=== PATIENT | male | born 1970 | race Caucasian/White ===

== ENCOUNTER 2018-02-25 17:51 | Inpatient (IN) | payer BC ==
[2018-02-25] VITALS (8 sets, daily range): BP systolic 96–161; BP diastolic 45–80
[~2018-02-25] VITALS: Ht 185.4 cm; Wt 117.5 kg
--- NOTE | ~2018-02-25 | O ---
[place], [place] OPERATIVE NOTE NAME: [id number] UNIT #: [id number] ROOM: [id number] DOCTOR: KATIA WILEY MD BIRTHDATE: [birth year] DOS: 02/26/2018 PREOPERATIVE DIAGNOSIS: Acute cholecystitis. POSTOPERATIVE DIAGNOSIS: Acute cholecystitis. PROCEDURE: Laparoscopic cholecystectomy. SURGEON: Katia Wiley MD CUT AND COVER LINE WORKER: [id number]. ANESTHESIA: General with endotracheal intubation. INDICATION: This is a 47-year-old gentleman who presented with abdominal pain and was found to have acute cholecystitis. It was decided to take the patient to the operating room for the above-mentioned procedure. The procedure and its complications were explained to the patient in detail preoperatively. Complications that were discussed included but were not limited to bleeding, infection, hematoma/seroma/abscess formation, biloma formation, incisional hernia formation, damage to lying vital structures, inadvertent injury to common bile duct and prolonged postoperative pain. He agreed to proceed. DESCRIPTION OF PROCEDURE: After identifying the patient, the patient was brought to the operating suite and laid in the supine position. After induction of general anesthesia, the parts were painted and draped in the usual sterile fashion and a time-out procedure was called. Access near the umbilicus was obtained with the help of a transverse incision on the skin. The skin and the subcutaneous tissue were incised. The fascia was incised vertically and a 10 mm Isabella port was introduced and pneumoperitoneum was created. Under direct vision, epigastric incision of 10 mm and two 5 mm incisions were made in the right upper quadrant and appropriate size ports were introduced. The gallbladder was found to be acutely inflamed and had lot of adhesions around it, which were taken down with the help of blunt and sharp dissection. The gallbladder was retracted superiorly and laterally. The cystic duct and the cystic artery were carefully dissected until the critical view of safety was obtained and the triangle of Calot was identified. Each of the structures were then clipped 3 times and cut between the first and the second clip. The gallbladder was then removed from the bed of the gallbladder with the help of electrocautery. It was placed in an EndoCatch bag and removed from the peritoneal cavity. Hemostasis was achieved in the liver bed. After that was confirmed, the right upper quadrant and epigastric ports were removed and there was no bleeding seen. The umbilical port was also removed and the fascial defect was approximated with the help of 0 Vicryl. The skin edges were infiltrated with local anesthesia and approximated with the help of 4-0 Vicryl in a subcuticular running fashion. Dressings were placed. The patient tolerated the procedure well and was taken to recovery in stable fashion. There were no complications. Dr. Katia Wiley, the attending surgeon, was present throughout the operating case. [place], [place] OPERATIVE NOTE NAME: LANG SORENSEN JR UNIT #: [id number] ROOM: [facility] DOCTOR: KATIA WILEY MD BIRTHDATE: [birth year] Katia Wiley MD CM:OPRECORD:OPERATIVE NOTE [id number] KATIA WILEY MD 02/26/18 1435 interface
[2018-02-25] MEDS ORDERED: JANUVIA100 MG PO (18:05)
[2018-02-25] MEDS ORDERED: ATORVASTATIN CA20 M1 PO (18:05)
[2018-02-25] MEDS ORDERED: METFORMIN HCL500 MG PO (18:05)
[2018-02-25] MEDS ORDERED: METOPROLOL SUCC25 M2 PO (18:05)
[2018-02-25 18:07] LABS: BASO % 0.4 % (0.0-1.0); EOS # 0.3 10*3/uL (0.0-0.4); EOS % 3.1 % (1.0-4.0); HEMATOCRIT 46.3 % (42.0-52.0); HEMOGLOBIN 16.1 g/dl (14.0-18.0); LYMPH # 3.6 10*3/uL (1.3-4.4); MEAN CELL VOLUME 89.6 fl (80.0-94.0); MEAN CORPUSCULAR HGB 31.1 pg (27.0-31.0); MEAN CORPUSCULAR HGB CONC 34.8 g/dl (33.0-37.0); MEAN PLATELET VOLUME 9.1 fl (9.6-12.3); MONO # 0.6 10*3/uL (0.1-1.0); MONO % 5.3 % (3.0-9.0); NEUT % 56.8 % (47.0-73.0); PLATELET COUNT AUTOMATED 215 10*3/uL (130-400); RED BLOOD COUNT 5.17 10*6/uL (4.50-5.90); RED CELL DISTRI WIDTH 12.9 % (0-14.5); WHITE BLOOD COUNT 10.5 10*3/uL (4.8-10.8)
[2018-02-25 18:17] LABS: ACT PARTIAL THROMBO TIME 22.7 SECONDS (20.8-31.5); INTERNATIONAL NORM RATIO 0.9 (2.0-3.5)
[2018-02-25 18:26] LABS: ALBUMIN 3.9 gm/dl (3.1-4.5); ALKALINE PHOSPHATASE 87 U/L (45-117); BUN 19 mg/dl (7-24); CHLORIDE 104 mmol/L (98-107); CREATININE 1.12 mg/dL (0.70-1.30); POTASSIUM 4.1 mmol/L (3.5-5.1); SGOT/AST 27 IU/L (3-35); SGPT/ALT 47 U/L (12-78); SODIUM 138 mmol/L (136-145); TOTAL PROTEIN 7.7 gm/dL (6.4-8.2)
[2018-02-25 18:30] LABS: TROPONIN I < 0.015 ng/ml (<0.045)
[2018-02-25] MEDS ORDERED: CHANTIX1 M1 PO (22:07)
[2018-02-26] VITALS (9 sets, daily range): BP systolic 118–141; BP diastolic 65–82
[2018-02-26 06:20] LABS: BASO % 0.4 % (0.0-1.0); EOS # 0.3 10*3/uL (0.0-0.4); EOS % 3.4 % (1.0-4.0); HEMATOCRIT 47.7 % (42.0-52.0); HEMOGLOBIN 16.6 g/dl (14.0-18.0); LYMPH # 3.5 10*3/uL (1.3-4.4); LYMPH % 34.6 % (27.0-41.0); MEAN CELL VOLUME 89.8 fl (80.0-94.0); MEAN CORPUSCULAR HGB 31.3 pg (27.0-31.0); MEAN CORPUSCULAR HGB CONC 34.8 g/dl (33.0-37.0); MEAN PLATELET VOLUME 9.2 fl (9.6-12.3); MONO # 0.5 10*3/uL (0.1-1.0); MONO % 4.9 % (3.0-9.0); NEUT # 5.6 10*3/uL (2.3-7.9); NEUT % 56.4 % (47.0-73.0); PLATELET COUNT AUTOMATED 221 10*3/uL (130-400); RED BLOOD COUNT 5.31 10*6/uL (4.50-5.90); RED CELL DISTRI WIDTH 12.9 % (0-14.5)
[2018-02-26 06:33] LABS: CHLORIDE 107 mmol/L (98-107); POTASSIUM 3.9 mmol/L (3.5-5.1); SODIUM 139 mmol/L (136-145)
[2018-02-26 06:43] LABS: ALBUMIN 3.8 gm/dl (3.1-4.5); ALKALINE PHOSPHATASE 92 U/L (45-117); BUN 14 mg/dl (7-24); CHOLESTEROL 172 mg/dL (<200); CREATININE 0.93 mg/dL (0.70-1.30); HDL CHOLESTEROL 27 mg/dl (40-60); LDL CHOLESTEROL 66 mg/dL (9-159); LIPASE 153 U/L (73-393); PHOSPHOROUS 3.5 mg/dL (2.5-4.9); SGOT/AST 27 IU/L (3-35); SGPT/ALT 45 U/L (12-78); TOTAL PROTEIN 7.4 gm/dL (6.4-8.2); TRIGLYCERIDES 396 mg/dl (<150); VLDL CHOLESTEROL 79 mg/dL (6-40)
[2018-02-26 06:48] LABS: ACT PARTIAL THROMBO TIME 22.5 SECONDS (20.8-31.5); INTERNATIONAL NORM RATIO 0.9 (2.0-3.5)
[2018-02-26 08:56] LABS: VITAMIN D, 25-HYDROXY 13.1 ng/mL (30-100)
[2018-02-26] MEDS ORDERED: VITAMIN D-32000 UNIT PO (14:56)
== END 2018-02-26 15:00 | disposition home or self-care (01) | DRG 419 ==
LOC: ED 17:51 → EDHOLD 20:58 → 4E 21:13
PROVIDERS: Emergency Medicine; Internal Medicine
PROC: 0FT44ZZ Resection of Gallbladder, Percutaneous Endoscopic Approach (ICD-10-PCS; principal; 2018-02-26)
DX: K80.00 Calculus of gallbladder with acute cholecystitis without obstruction (principal); E11.69 Type 2 diabetes mellitus with other specified complication; I95.2 Hypotension due to drugs; K76.0 Fatty (change of) liver, not elsewhere classified; E66.9 Obesity, unspecified; E78.5 Hyperlipidemia, unspecified; I10 Essential (primary) hypertension; I25.10 Atherosclerotic heart disease of native coronary artery without angina pectoris; F17.200 Nicotine dependence, unspecified, uncomplicated; R06.82 Tachypnea, not elsewhere classified; R00.1 Bradycardia, unspecified; Z79.84 Long term (current) use of oral hypoglycemic drugs; Z83.3 Family history of diabetes mellitus; Z95.1 Presence of aortocoronary bypass graft; Z82.49 Family history of ischemic heart disease and other diseases of the circulatory system; Z71.6 Tobacco abuse counseling; Z68.34 Body mass index [BMI] 34.0-34.9, adult

== ENCOUNTER 2020-07-27 08:26 | Emergency (ER) | payer OTHER ==
[~2020-07-27] VITALS: Ht 182.8 cm; Wt 108.9 kg
[~2020-07-27 08:26] MED LIST: ATORVASTATIN CA20 M1 PO; CHANTIX1 M1 PO; JANUVIA100 MG PO; METFORMIN HCL500 MG PO; METOPROLOL SUCC25 M2 PO; VITAMIN D-32000 UNIT PO
[2020-07-27 08:35] VITALS: BP 124/71
[2020-07-27 08:48] LABS: BASO % 0.4 % (0.0-1.0); EOS # 0.3 10*3/uL (0.0-0.4); EOS % 3.7 % (1.0-4.0); HEMATOCRIT 48.9 % (42.0-52.0); LYMPH % 28.5 % (27.0-41.0); MEAN CELL VOLUME 90.4 fl (80.0-94.0); MEAN CORPUSCULAR HGB 30.7 pg (27.0-31.0); MEAN CORPUSCULAR HGB CONC 33.9 g/dl (33.0-37.0); MEAN PLATELET VOLUME 8.9 fl (9.6-12.3); MONO # 0.4 10*3/uL (0.1-1.0); MONO % 5.6 % (3.0-9.0); NEUT # 4.3 10*3/uL (2.3-7.9); NEUT % 61.5 % (47.0-73.0); PLATELET COUNT AUTOMATED 233 10*3/uL (130-400); RED BLOOD COUNT 5.41 10*6/uL (4.50-5.90)
[2020-07-27 08:54] LABS: ACT PARTIAL THROMBO TIME 26.8 SECONDS (20.0-32.1); INTERNATIONAL NORM RATIO 0.9 (2.0-3.5)
[2020-07-27 09:00] LABS: ALKALINE PHOSPHATASE 63 U/L (45-117); BUN 17 mg/dl (7-24); CHLORIDE 109 mmol/L (98-107); CREATININE 1.14 mg/dL (0.70-1.30); POTASSIUM 4.1 mmol/L (3.5-5.1); SGOT/AST 16 IU/L (3-35); SGPT/ALT 35 U/L (12-78); SODIUM 138 mmol/L (136-145); TOTAL PROTEIN 7.5 gm/dL (6.4-8.2)
[2020-07-27 09:01] LABS: TROPONIN I < 0.015 ng/ml (<0.045)
[2020-07-27 09:36] VITALS: BP 137/79
--- NOTE | 2020-07-27 09:57 | NUR ---
SIGNED AMA. REFUSED TO BE ADMITTED STATING "YOU NEED TO REEVALUATE YOUR VISITATION POLICY UPSTAIRS." EXPLAINED TO HIM THAT IT IS CURRENTLY HOSPITAL POLICY D/T COVID. RISKS AND POSSIBLE COMPLICATIONS WERE EXPLAINED TO HIM. HE VOICED UNDERSTANDING. HE HAS SIGNED THE CHART. HAS AN APPOINTMENT WITH HIS DOCTOR AT 3:30 TODAY.
== END 2020-07-27 10:00 | disposition left against medical advice (07) ==
LOC: ED 08:26 → EDHOLD 09:12 → ED 09:12 → EDHOLD 09:24 → 5E 09:24 → ED 10:00
PROVIDERS: Emergency Medicine
DX: G89.29 Other chronic pain (principal); R07.9 Chest pain, unspecified; M54.5 Low back pain; M54.2 Cervicalgia; I10 Essential (primary) hypertension; E78.00 Pure hypercholesterolemia, unspecified; E11.9 Type 2 diabetes mellitus without complications; Z95.1 Presence of aortocoronary bypass graft; I25.10 Atherosclerotic heart disease of native coronary artery without angina pectoris; E78.5 Hyperlipidemia, unspecified; E66.9 Obesity, unspecified; F17.200 Nicotine dependence, unspecified, uncomplicated; Z68.34 Body mass index [BMI] 34.0-34.9, adult; Z79.899 Other long term (current) drug therapy